=== PATIENT | female | born 2000 | race African-American/Black ===

== ENCOUNTER 2019-02-13 15:45 | Emergency (ER) | payer SELFPAY ==
[2019-02-13 16:06] VITALS: BP 109/61
--- NOTE | 2019-02-13 16:26 | UC ---
Skin Complaint HPI - HPI Summary HPI Summary: Patient presents to urgent care to have sutures removed on her right upper eyebrow. Patient has been placed in [place] on 02/05/19. Patient states she was intoxicated. Patient without any erythema drainage. Mild discomfort. No headaches or vision changes. Tetanus up-to-date. Not . Medications reviewed this visit - History of Current Complaint Chief Complaint: UCSkin Time Seen by Provider: 02/13/19 16:00 Stated Complaint: STITCH REMOVAL-DONE IN [place] ?: No Onset/Duration: Lasting Days Skin Exposure Onset/Duration: Days Ago Pain Intensity: 5 PMH/Surg Hx/FS Hx/Imm Hx Previously Healthy: Yes - Surgical History Surgical History: None - Family History Known Family History: Positive: Non-Contributory - Social History Lives: With Family Alcohol Use: Rare Substance Use Type: None Smoking Status (MU): Light Every Day Tobacco Smoker Type: Cigarettes Review of Systems All Other Systems Reviewed And Are Negative: Yes Skin: Positive: Other - laceration repair right upper brow Physical Exam - Summary Physical Exam Summary: Vital Signs Reviewed: Yes A+Ox3, no distress Eyes: Conjunctiva Clear ENT: Hearing grossly normal neck: supple Respiratory: Positive: No respiratory distress, No accessory muscle use Cardiovascular: skin color reflect adequate perfusion Musculoskeletal Exam: MTAUTE x 4 without difficulty Neurological: Positive: Alert, ambulatory without difficulty Psychological: Positive: Normal Response To proivder Skin: Positive: wound c/d/i sutures intact easily removed #8 prolene sutures without difficulty Triage Information Reviewed: Yes Vital Signs: Initial Vital Signs Temp 98.9 F 02/13/19 15:59 Pulse 76 02/13/19 15:59 Resp 16 02/13/19 15:59 BP 109/61 02/13/19 15:59 Pulse Ox 99 02/13/19 15:59 Course/Dx - Course Course Of Treatment: pt here for suture removal suture well appearing c/d/i removed without difficulty reviewed wound care with patient - Diagnoses Provider Diagnosis: Visit for suture removal Discharge - Sign-Out/Discharge Documenting (check all that apply): Patient Departure All imaging exams completed and their final reports reviewed: No Studies - Discharge Plan Condition: Stable Disposition: HOME Patient Education Materials: Stitches Removal (ED) Referrals: No Primary Care Phys,NOPCP [Primary Care Provider] - Additional Instructions: - Keep wound clean. Okay to apply a thin layer of antibiotic to wound as needed for itching - monitor for signs of infection (reddness, red streaking, odor, drainage) - contact your doctor or return with questions or concerns - Billing Disposition and Condition Condition: STABLE Disposition: Home
[2019-02-13 19:17] LABS: HIV 4th Generation Negative (Negative)
== END 2019-02-13 16:36 | disposition home or self-care (01) ==
LOC: UCCORT 15:45
DX: S01.111D Laceration without foreign body of right eyelid and periocular area, subsequent encounter (principal); X58.XXXD Exposure to other specified factors, subsequent encounter; F17.210 Nicotine dependence, cigarettes, uncomplicated
CPT/HCPCS: 36415; 87389; 99201; G0463